=== PATIENT | female | born 1960 ===

== ENCOUNTER 2017-10-29 05:25 | Day surgery (SDC) | payer OTHER ==
[~2017-10-29 05:25] MED LIST: ATORVASTATIN CA10 MG; CYMBALTA20 MG; GABAPENTIN300 MG; ISOPTIN SR120 MG; LEVOTHYROXINE; OMEPRAZOLE20 M1; PROBIOTIC ACID1 EAC3; TOPIRAMATE; ULTRAM50 MG
== END 2017-10-29 11:00 | disposition home or self-care (01) ==
LOC: CIR.AMB 05:25
DX: R15.9 Full incontinence of feces (principal)
CPT/HCPCS: 64581; C1778

== ENCOUNTER 2017-11-12 05:45 | Day surgery (SDC) | payer OTHER | END 2017-11-12 10:35 | disposition home or self-care (01) | LOC: CIR.AMB 05:45 → AMB-ENDOS 11:19 → CIR.AMB 12:08 | DX: R15.9 Full incontinence of feces (principal) | CPT/HCPCS: 64590; C1767 ==